=== PATIENT | male | born 1980 | race African-American/Black ===

== ENCOUNTER 2021-05-06 10:36 | Outpatient (REF) | payer OTHER, SELFPAY ==
[2021-05-06 13:42] LABS: Cholesterol 189 mg/dL; Glucose Fasting 111 mg/dL (60-99); HDL Cholesterol 44 mg/dL; LDL Cholesterol Calculated 129 mg/dl; Triglycerides 81 mg/dL
== END 2021-05-06 10:37 | disposition home or self-care (01) ==
LOC: HO.10HDL 10:36
PROVIDERS: Visit Provider Family Medicine
DX: Z82.49 Family history of ischemic heart disease and other diseases of the circulatory system (principal)
CPT/HCPCS: 36415; 80061; 82947

== ENCOUNTER 2022-02-17 10:41 | Outpatient (REF) | payer OTHER, SELFPAY ==
[2022-02-17 11:34] LABS: Estimated Average Glucose 120 mg/dL; Hemoglobin A1c % 5.8 %
[2022-02-17 11:42] LABS: Glucose Fasting 104 mg/dL (60-99)
== END 2022-02-17 10:42 | disposition home or self-care (01) ==
LOC: HO.LAB 10:41
PROVIDERS: PCP Family Medicine; Visit Provider Family Medicine
DX: R73.9 Hyperglycemia, unspecified (principal)
CPT/HCPCS: 36415; 82947; 83036

== ENCOUNTER → 2023-07-07 09:11 | Outpatient (REF) | payer OTHER, SELFPAY ==
--- NOTE | 2023-07-07 09:13 | CA_ITS ---
Transthoracic Echocardiogram Patient (Last, First, Middle): PATRICIA STEELE, Gender: Male Date of : 1980 Age: 43 Procedure Date: 07/07/2023 Procedure Type: Transthoracic Echocardiogram Location: OP Height: 172.72 cm Weight: 68.04 kg BSA: 1.81 m2 Heart Rate: bpm BP: 130 / 80 mmHg Mixing Technician: CORA Referring MD: Raoul Oseguera MD Car Rental Sales Assistant: Daquan Castelan MD Symptoms: R01.1 CA MURMUR R/O Study Quality: Good ECG Rhythm: Sinus Conclusions: - Essentially normal study Findings Left Ventricle Normal left ventricular size, thickness, and systolic function. The visually estimated ejection fraction is between 65-70%. Diastolic function is normal for age. Peak GLS is -22.1%, within normal limits. Right Ventricle Normal right ventricular cavity size and systolic function. Atria Both atria are normal in size. There is no evidence of interatrial shunt. Aortic Valve Normal aortic valve structure and function. There is no aortic valve stenosis. There is no aortic valve regurgitation. Mitral Valve Normal mitral valve structure and function. There is trace mitral valve regurgitation. There is no mitral valve stenosis. Pulmonic Valve The pulmonic valve is likely normal. Tricuspid Valve Normal tricuspid valve structure. There is trace tricuspid valve regurgitation. The right ventricular systolic pressure is 24 mmHg. Normal right atrial pressure. There is no evidence of pulmonary hypertension. Great Vessels All visible segments of the aorta are normal in size. The pulmonary artery was not well visualized. Venous The inferior vena cava is normal in size and collapses greater than 50% with inspiration. Pericardium/Pleural There is no evidence of pericardial effusion. Prior Study Comparison No prior study available for comparison. Measurements 2D Linear Measurements IVSd: 0.82 0.6-0.9/0.6-1.0 cm LVIDd: 4.44 3.9-5.3/4.2-5.9 cm LVIDd Index: 2.45 2.4-3.2/2.2-3.1 cm/m2 LVIDs: 2.93 2.0-3.6 cm LVPWd: 0.85 0.7-1.1 cm LA Diam: 2.80 2.7-3.8/3.0-4.0 cm LAIDs Index: 1.55 1.5-2.3 cm/m2 LV Mass: 145.50 67-162/88-224 g LV Mass Index: 80.38 43-95/49-115 g/m2 LVOT Diam: 1.90 3.0+(-)1.3 cm 2D Systolic Function EF 4C: 67.90 >55% EF 2C: 71.30 >55% EF BiP: 69.70 >55% Mitral Valve MV Pk E: 1.08 MV PK A: 0.49 MV Decel Time: 188.00 E/A: 2.20 E'Lateral: 13.80 E'Medial: 10.10 E/E' Med: 10.70 E/E' Lat: 7.80 PHT: 55.00 MVA PHT: 4.00 Decel Stearns: 5.76 Aortic Valve AoV Pk Eyad: 1.56 AoV Mn Eyad: 1.06 AoV VTI: 0.36 AoV Pk Grad: 10.00 Aov Mn Grad: 5.00 MAVIS Cont.VTI: 2.16 LVOT LVOT Pk Eyad: 1.28 LVOT Mn Eyad: 0.78 LVOT VTI: 0.27 LVOT Pk Grad: 7.00 LVOT Mn Grad: 3.00 LVOT Diam: 1.90 LVOT Area: 2.84 Diastolic Function MV Pk E: 1.08 MV Pk A: 0.49 E/A: 2.20 E'Medial: 10.10 E/E' Med: 10.70 E' Laterial: 13.80 E/E' Lat: 7.80 Right Ventricle TAPSE (mm): 26.50 TVS' Eyad: 13.70 Tricuspid Valve TR Pk Eyad: 2.27 TR Pk Grad: 21.00 RA Press: 3.00 RVSP: 24.00 Great Vessels Aorta Sinus of Valsalva: 3.11 2.0-3.[address] [place]: 2.32 1.7-3.4 cm Ao Asc: 3.10 2.1-3.4 cm Updated in Other Vendor System with Status of Final Daquan Castelan MD electronically signed on 07/07/2023 1:38:40 PM with status of Final
== END ==
LOC: HO.CARD 09:11
PROVIDERS: PCP Family Medicine; Visit Provider Family Medicine
DX: R01.1 Cardiac murmur, unspecified (principal)
CPT/HCPCS: 93306; 93356

== ENCOUNTER → 2023-07-07 09:13 | Outpatient (BNV) | payer OTHER, SELFPAY | PROVIDERS: PCP Family Medicine; Visit Provider Internal Medicine Cardiovascular Disease | DX: R01.1 Cardiac murmur, unspecified (principal) | CPT/HCPCS: 93306; 93356 ==

== ENCOUNTER 2024-12-24 08:56 | Outpatient (AMB) | payer OTHER, SELFPAY ==
--- NOTE | 2024-12-24 09:14 | A.OFFPC_ITS ---
Vital Signs 12/24/24 09:17 Height 5 ft 9.5 in Weight 145 lb 4 oz BMI 21.1 BP 142/84 H Blood Pressure Location Lt brachial Position Sitting Respiration 16 Pulse 61 Pulse Source Pulse Oximeter Temp 96.6 F L Temp Source Temporal Artery Scan Pulse Oximetry (%) 96 Oxygen Delivery Method Room Air Intake Visit Reasons: KEVIN /Dr Oseguera - see comments Certified Professional Ergonomist Required: No Accompanied by: Self / Same As Patient Allergies No Known Allergies Allergy (Verified 12/24/24 09:18) Tobacco use date assessed: 12/24/24 Dental Screening Dental Screen Date: 12/24/24 Did you have a dental visit in the last 12 months?: Yes Did you have a dental problem in the last 6 months where you did not have access to dental care?: No Was dental information given to patient?: Patient has dentist HPI HPI Comments History of Present Illness Details The patient is a 44-year-old male presenting for his first visit, which is being conducted as an annual physical examination. He reports no past medical conditions, prior surgeries, or known allergies. Blood work from 2022 indicated a prediabetic state, with a Hemoglobin A1c of 5.8. His blood pressure was noted to be elevated during the visit. Medical History: - Denies any known medical conditions. - Prediabetes, based on A1c of 5.8 from 2022 blood work. Surgical History: - Denies any history of surgeries. Family History: - Denies family history of heart disease . - Denies family history of diabetes. - Denies family history of cancers. Diagnostic Results: - Labs (from 2022): Hemoglobin A1c was 5 .8, indicating prediabetes. - Vitals (current visit): Initial blood pressure was 142/86 mmHg, and a subsequent reading was 160/90 mmHg. Social History: - Employment: The patient works in home health, taking care of clients. - Substance Use: Denies smoking, alcohol use, and illicit drug use including marijuana, heroin, and cocaine. - Mood: Reports feeling good and denies any feelings of depression or anxiety. [facility] Medical History (Updated 12/24/24 @ 09:37 by Reggie Griggs MD) Prediabetes Hypertension Annual physical exam Social History Housing: House Patient Tobacco Use Status: Never used Tobacco e-Cigarette/Vaping Use: Never Used service: No Current occupational status: employed Current occupation: Home health Questionnaire PHQ-9 Over the last 2 weeks, how often have you been bothered by any of the following problems? 1. Little interest or pleasure in doing things: not at all 2. Feeling down, depressed, or hopeless: not at all 3. Trouble falling or staying asleep, or sleeping too much: not at all 4. Feeling tired or having little energy: not at all 5. Poor appetite or overeating: not at all 6. Feeling bad about yourself - or that you are a failure or have let yourself or your family down: not at all 7. Trouble concentrating on things, such as reading the newspaper or watching television: not at all 8. Moving or speaking so slowly that other people could have noticed. Or the opposite - being so fidgety or restless that you have been moving around a lot more than usual: not at all 9. Thoughts that you would be better off or of hurting yourself in some way: not at all Total score: 0 Depression Screening Interpretation: Negative Depression Screening Done: Yes 22362 - PHQ-9 Billing: Yes Source: Developed by Drs. Francis Cazares, Eliza Stinson, Danny Araujo and colleagues, with an educational melvin from light. Thrive Questionnaire Date Thrive assessed: 12/24/24 I am a: Patient What is your living situation today?: I have a steady place to live Within the past 12 months, did the food you bought not last and you didn't have the money to get more?: Never true Within the past 12 months, did you worry whether your food would run out before you got money to buy more?: Never true Do you have trouble paying for medicines?: No Do you have trouble getting transportation to medical appointments?: No Do you have trouble paying your heating and electricity bill?: No Do you have trouble taking care of your child, family member or friend?: No Do you have trouble with day-to-day activities such as bathing, preparing meals, shopping, managing finances, etc.?: No Are you currently unemployed and looking for a job?: No Are you interested in more education?: No THRIVE Score: 0 AUDIT C Alcohol Use Questionnaire (AUDIT-C) 1. How often do you have a drink containing alcohol?: Never 3. How often do you have six or more drinks on one occasion?: Never Total Score: 0 Score Reviewed/Action Taken: Yes BULMARO-7 AMB Questionnaire BULMARO-7 Date BULMARO - 7 assessed: 12/24/24 Feeling nervous, anxious, or on edge: 0 = Not at all Not being able to stop or control worryin = Not at all Worrying too much about different things: 0 = Not at all Trouble relaxin = Not at all Being so restless that it is hard to sit still: 0 = Not at all Becoming easily annoyed or irritable: 0 = Not at all Feeling afraid as if something awful might happen: 0 = Not at all Total BULMARO-7 score (0-4 normal; 5-9 mild; 10-14 moderate; 15-21 severe): 0 Source: Developed by Drs. Francis Cazares, Eliza Stinson, Danny Araujo and colleagues, with an educational melvin from light. BULMARO-7 Assessment Billing BULMARO-7 Assessment Tool: BULMARO-7 Assessment 23523 Review of Systems Narrative - Constitutional: Reports feeling healthy and denies weight loss, with stable weight. - HEENT: Denies headaches and vision changes. - Cardiovascular: Denies chest pain. - Respiratory: Denies shortness of breath. - Gastrointestinal: Denies nausea and vomiting. - Psychiatric: Denies feeling depressed or anxious. All systems reviewed & are unremarkable except as reviewed in HPI and above Physical exam (Primary Care) Vital Signs: Last Vital Signs Temp 96.6 F L 12/24/24 09:17 Pulse 61 12/24/24 09:17 Resp 16 12/24/24 09:17 BP 142/84 H 12/24/24 09:17 Pulse Ox 96 12/24/24 09:17 Oxygen Delivery Method Room Air 12/24/24 09:17 BMI result Body Mass Index 21.1 Tobacco/Smoking Status: Tobacco use Status Tobacco use date assessed 12/24/24 12/24/24 09:17 Patient Tobacco Use Status Never used Tobacco 12/24/24 09:20 e-Cigarette/Vaping Use Never Used 12/24/24 09:20 Depression Screening Interpretation: Negative Narrative General: +Alert and oriented, Well nourished, No acute distress. Eye: Pupils are equal, round and reactive to light, Intact accommodation, Extraocular movements are intact, Normal conjunctiva, Vision unchanged. HENT: Normocephalic, Atraumatic, Tympanic membranes are clear, Normal hearing, Oral mucosa is moist, No pharyngeal erythema, Ear canals patent. Respiratory: Lungs CTA bilaterally, No wheeze, Respirations are non-labored. Cardiovascular: Regular rate, Regular rhythm, S1 auscultated, S2 auscultated, No murmur, Good pulses equal in all extremities, Normal peripheral perfusion, No edema. Gastrointestinal: Soft, Non-tender, Non-distended, Normal bowel sounds, No organomegaly. Musculoskeletal: Normal range of motion, Normal strength, No tenderness, No swelling, No deformity, Normal gait. Integumentary: Warm, Dry, [place], Intact. Neurologic: Alert, Oriented, Normal sensory, Normal motor function, No focal defects, Cranial Nerves II-XII are grossly intact, Normal deep tendon reflexes. Psychiatric: Cooperative, Appropriate mood & affect, Normal judgment. Coding Level of Care Code New Pt Level 3 (22079) New Pt Prev Care 40-64y(55763) Diagnoses Hypertension, unspecified type I10 Hypertension type: unspecified Prediabetes R73.03 Additional Codes PHQ-9 - 16020 - PHQ-9 Billing: Yes ([id number]) BULMARO-7 Assessment Billing - BULMARO-7 Assessment Tool: BULMARO-7 Assessment 35527 ([id number]) Comment [id number] Assessment & Plan Assessment & Plan (1) Hypertension: Comment: - The patient's blood pressure was elevated at 160/90 mmHg during the visit, which he attributes to nervousness. - He will monitor his blood pressure daily at home for four weeks. - A follow-up appointment is scheduled in four weeks to review the readings, (Hesitant to start medications today) Code(s): I10 - Essential (primary) hypertension Category: Medical Qualifiers: Hypertension type: unspecified Qualified Code(s): I10 - Essential (primary) hypertension (2) Prediabetes: Comment: - The patient has a history of prediabetes from 2022 labs with an A1c of 5.8. - Baseline labs, including a check of his sugar levels, have been ordered to re- evaluate his current status. Code(s): R73.03 - Prediabetes Category: Medical Plan: Health Maintenance: - Recommended colonoscopy for colorectal cancer screening, as the patient is over 45 years of age. - Ordered baseline laboratory studies including a complete blood count, electrolytes, sugars, cholesterol, thyroid function, vitamin D, hepatitis panel, and HIV test. - Advised daily home blood pressure monitoring for four weeks with a scheduled follow-up. Patient was informed and verbally consented to the use of an ambient scribe for clinic note documentation during this visit. Vital signs reviewed. Comprehensive history, review of systems, and physical exam completed. Medications, allergies, and problem list reviewed and updated. Counseling provided on nutrition, regular exercise, sleep hygiene, and moderation of alcohol use. Discussed age-appropriate screenings (mammogram, colonoscopy, Pap, bone density) and immunizations (flu, COVID, shingles, Tdap). Screened for depression, fall risk, and home safety; no current concerns. Discussed stress management, dental and vision care, and importance of ongoing preventive follow-up. Routine labs ordered for metabolic and lipid screening. Patient educated on healthy lifestyle and agrees with the plan. Plan I conducted this first visit as an annual physical for this 44-year-old male. His blood pressure was elevated in the office at 160/90 mmHg, which he felt was due to anxiety. We agreed on a plan for him to monitor his blood pressure at home for four weeks, with a follow-up scheduled that can be canceled if his home readings are normal. I reviewed his 2022 lab work which showed prediabetes with an A1c of 5.8 and ordered a new set of comprehensive baseline labs. I also discussed the importance of colorectal cancer screening and recommended a colonoscopy, explaining it is a preventive measure. I informed him that I would order the referral, and that the process may take several months. Orders: Orders Complete Blood Count Auto Diff Today Z00.00 - Encounter for general adult medical examination without abnormal findings Microalbumin, Random (w Creat) Today Z00.00 - Encounter for general adult medical examination without abnormal findings Syphilis Screen Today Z00.00 - Encounter for general adult medical examination without abnormal findings Comprehensive Met. Panel Today Z00.00 - Encounter for general adult medical examination without abnormal findings Hemoglobin A1c Today Z00.00 - Encounter for general adult medical examination without abnormal findings Hepatitis A,B,C Profile Today Z00.00 - Encounter for general adult medical examination without abnormal findings HIV Ab/Ag Today Z00.00 - Encounter for general adult medical examination without abnormal findings Lipid Panel Today Z00.00 - Encounter for general adult medical examination without abnormal findings TSH reflex Free T4 Today Z00.00 - Encounter for general adult medical examination without abnormal findings Vitamin D 25-OH Total Today Z00.00 - Encounter for general adult medical examination without abnormal findings Referrals Open Access Screening Colonoscopy Referral Z12.11 - Encounter for screening for malignant neoplasm of colon Patient Instructions: - Please check your blood pressure at home every day for the next four weeks. - We have scheduled a follow-up appointment in four weeks to review your blood pressure readings. - You may call to cancel this appointment if your blood pressure is normal at home. - Please go to the lab next door to have your blood drawn for the tests that were ordered. - A referral has been placed for a colonoscopy for cancer screening, and you should expect to be contacted for scheduling. - We will call you if any of your lab results are abnormal.
[2024-12-24 09:17] VITALS: BP 142/84; PULSE 61; RESP 16; TEMP 35.9; O2SAT 96; BMI 21.1
== END 2024-12-24 09:36 | disposition home or self-care (01) ==
LOC: HO.HMCHD 08:57
PROVIDERS: PCP Family Medicine; Visit Provider Student in an Organized Health Care Education/Training Program
DX: I10 Essential (primary) hypertension (principal); R73.03 Prediabetes; Z00.00 Encounter for general adult medical examination without abnormal findings

== ENCOUNTER → 2024-12-24 08:56 | Outpatient (BNVA) | payer OTHER, SELFPAY | PROVIDERS: PCP Family Medicine; Visit Provider Student in an Organized Health Care Education/Training Program | DX: Z00.00 Encounter for general adult medical examination without abnormal findings (principal); I10 Essential (primary) hypertension; R73.03 Prediabetes; Z13.31 Encounter for screening for depression; Z13.39 Encounter for screening examination for other mental health and behavioral disorders | CPT/HCPCS: 96127; 99202; 99386 ==